=== PATIENT | female | born 1955 | race Caucasian/White ===

== ENCOUNTER 2018-12-18 13:59 | Inpatient (IN) | payer MEDICARE, OTHER ==
[~2018-12-18] VITALS: Ht 157.5 cm; Wt 85.4 kg
[2018-12-18 16:55] VITALS: BP 113/80
[2018-12-18] MEDS ORDERED: PLEASE ENTER ALLERGIES MC SCH (18:00)
[2018-12-18 18:05] LABS: MEAN CORPUSCULAR HEMOGLOBIN 31.8 pg (27.0-34.8); MEAN CORPUSCULAR HGB CONC 34.1 g/dL (32.4-35.8); MEAN CORPUSCULAR VOLUME 93.2 fL (80-100); MEAN PLATELET VOLUME 7.6 fL (7.4-10.4); PLATELET COUNT 181 x10^3/uL (130-400); RED BLOOD COUNT 4.34 x10^6/uL (3.82-5.3); RED CELL DISTRIBUTION WIDTH 14.5 % (9.6-15.2)
[2018-12-18 18:09] LABS: ANION GAP 4 mmol/L (5-15); CALCIUM 8.6 mg/dL (8.5-10.1); CHLORIDE 105 mmol/L (98-107)
[2018-12-18 18:14] LABS: ALANINE AMINOTRANSFERASE 27 U/L (12-78); ALBUMIN 3.2 g/dL (3.4-5.0); BILIRUBIN, DIRECT 0.5 mg/dL (0.1-0.2); BILIRUBIN,TOTAL 1.2 mg/dL (0.2-1.0); CREATININE 0.82 mg/dL (0.55-1.02); TOTAL PROTEIN 6.6 g/dL (6.4-8.2)
[2018-12-18 18:15] LABS: ALKALINE PHOSPHATASE 59 U/L (45-117); BILIRUBIN,INDIRECT 0.7 mg/dL (0.0-2.0)
[2018-12-18 18:49] LABS: BASOPHILS # (AUTO) 0.03 x10^3/uL (0-0.1); BASOPHILS % (AUTO) 0 % (0-1); EOSINOPHILS # (AUTO) 0.02 x10^3/uL (0-0.4); EOSINOPHILS % (AUTO) 0 % (1-7); LYMPHOCYTES # (AUTO) 0.53 x10^3/uL (1-3.4); LYMPHOCYTES % (AUTO) 3 % (22-44); MD SCAN; MONOCYTES # (AUTO) 0.57 x10^3/uL (0.2-0.8); MONOCYTES % (AUTO) 3 % (2-9); NEUTROPHILS # (AUTO) 16.36 x10^3/uL (1.8-6.8); NEUTROPHILS % (AUTO) 93 % (42-75)
[2018-12-18] MEDS: morphine SULFATE 10 MG/ML, 1ML IVPush PRN ×2 (19:41→20:03)
[2018-12-18 20:01] VITALS: BP 111/77
[2018-12-18] MEDS: SODIUM CHLORIDE 0.9% 1,000 ML IV SCH (20:03)
[2018-12-18] MEDS: MEROPENEM 1 GM in SODIUM CHLORIDE 0.9% 100 ML IV SCH (20:40)
[2018-12-18] MEDS ORDERED: RANI150T23 PO (20:43)
[2018-12-18] MEDS ORDERED: CLON0.5T11 PO (20:43)
[2018-12-18] MEDS ORDERED: ALPR-475 PO (20:43)
[2018-12-18] MEDS ORDERED: LEVO125T PO (20:43)
[2018-12-18] MEDS ORDERED: SERT50TA PO (20:43)
[2018-12-18] MEDS ORDERED: ZOLP10TA PO (20:43)
[2018-12-18] MEDS ORDERED: PANT40GR PO (20:43)
[2018-12-18] MEDS ORDERED: MIRT15TA PO (20:43)
[2018-12-18] MEDS ORDERED: ESTR1TAB7 PO (20:43)
[2018-12-18] MEDS: HYDROmorphone 2 MG/ML, 1ML IVPush PRN (21:11)
[2018-12-18 21:46] LABS: MICROSCOPIC INDICATED
[2018-12-18] MEDS ORDERED: MAGNESIUM CITRATE 300ML ORAL SOL PO ONE (22:00)
[2018-12-19] MEDS: HYDROmorphone 2 MG/ML, 1ML IVPush PRN ×6 (00:30→20:53)
[2018-12-19 00:34] VITALS: BP 111/87
[2018-12-19 02:55] VITALS: BP 127/93
[2018-12-19] MEDS: SODIUM CHLORIDE 0.9% 1,000 ML IV SCH ×3 (04:08→20:41)
[2018-12-19] MEDS: MEROPENEM 1 GM in SODIUM CHLORIDE 0.9% 100 ML IV SCH ×3 (04:14→20:41)
[2018-12-19 05:34] LABS: BASOPHILS # (AUTO) 0.03 x10^3/uL (0-0.1); BASOPHILS % (AUTO) 0 % (0-1); EOSINOPHILS # (AUTO) 0.06 x10^3/uL (0-0.4); EOSINOPHILS % (AUTO) 0 % (1-7); LYMPHOCYTES # (AUTO) 0.49 x10^3/uL (1-3.4); LYMPHOCYTES % (AUTO) 3 % (22-44); MD NO; MEAN CORPUSCULAR HEMOGLOBIN 32.2 pg (27.0-34.8); MEAN CORPUSCULAR HGB CONC 34.3 g/dL (32.4-35.8); MEAN CORPUSCULAR VOLUME 93.9 fL (80-100); MONOCYTES # (AUTO) 0.86 x10^3/uL (0.2-0.8); MONOCYTES % (AUTO) 6 % (2-9); NEUTROPHILS # (AUTO) 13.57 x10^3/uL (1.8-6.8); NEUTROPHILS % (AUTO) 91 % (42-75); PLATELET COUNT 169 x10^3/uL (130-400); RED BLOOD COUNT 3.94 x10^6/uL (3.82-5.3); RED CELL DISTRIBUTION WIDTH 14.5 % (9.6-15.2)
[2018-12-19 05:41] LABS: ALANINE AMINOTRANSFERASE 23 U/L (12-78); ALBUMIN 2.8 g/dL (3.4-5.0); ANION GAP 4 mmol/L (5-15); CALCIUM 8.4 mg/dL (8.5-10.1); CHLORIDE 109 mmol/L (98-107); CREATININE 0.79 mg/dL (0.55-1.02)
[2018-12-19 05:43] LABS: ALKALINE PHOSPHATASE 59 U/L (45-117); TOTAL PROTEIN 6.2 g/dL (6.4-8.2)
[2018-12-19] MEDS: PANTOPRAZOLE 40 MG IV IVPush SCH (07:44)
[2018-12-19 07:51] VITALS: BP 103/77
[2018-12-19] MEDS ORDERED: MAGNESIUM CITRATE 300ML ORAL SOL PO ONE (08:00)
[2018-12-19] MEDS: ACETAMINOPHEN 325 MG TABLET PO PRN (12:06)
[2018-12-19] MEDS: SERTRALINE 50MG TABLET PO SCH (12:08)
[2018-12-19 13:17] VITALS: BP 95/64
[2018-12-19] MEDS ORDERED: OMNIPAQUE 350 MG/ML, 100ML BOTTLE ONE (16:40)
[2018-12-19] MEDS: ONDANSETRON 2MG/ML, 2ML IVPush PRN (17:05)
[2018-12-19 19:01] VITALS: BP 90/66
[2018-12-19] MEDS: FAMOTIDINE 20 MG TABLET PO SCH (20:38)
[2018-12-20 04:14] VITALS: BP 107/72
[2018-12-20] MEDS: ONDANSETRON 2MG/ML, 2ML IVPush PRN (04:30)
[2018-12-20] MEDS: HYDROmorphone 2 MG/ML, 1ML IVPush PRN ×5 (04:32→18:48)
[2018-12-20] MEDS: MEROPENEM 1 GM in SODIUM CHLORIDE 0.9% 100 ML IV SCH ×3 (04:34→20:10)
[2018-12-20] MEDS: SODIUM CHLORIDE 0.9% 1,000 ML IV SCH ×3 (04:34→20:10)
[2018-12-20] MEDS ORDERED: SERTRALINE 50MG TABLET PO SCH (06:00)
[2018-12-20] MEDS: PANTOPRAZOLE GRAN. PKT 40 MG PO SCH (07:21)
[2018-12-20] MEDS: SERTRALINE 50MG TABLET PO SCH ×2 (07:21→08:44)
[2018-12-20] MEDS: LEVOTHYROXINE 125 MCG TABLET PO SCH (07:21)
[2018-12-20 08:07] VITALS: BP 105/73
[2018-12-20] MEDS: PANTOPRAZOLE 40 MG IV IVPush SCH (08:37)
[2018-12-20] MEDS: ACETAMINOPHEN 325 MG TABLET PO PRN (08:44)
[2018-12-20] MEDS ORDERED: SODIUM CHLORIDE 0.9% IV ONE (09:30)
[2018-12-20] MEDS ORDERED: INDOCYANINE GREEN IV ONE (09:30)
[2018-12-20] MEDS ORDERED: ACETAMINOPHEN 500 MG TABLET ONE (14:57)
[2018-12-20] MEDS ORDERED: GABAPENTIN 300 MG CAPSULE ONE (14:57)
[2018-12-20] MEDS ORDERED: GABAPENTIN 300 MG CAPSULE PO ONE (15:00)
[2018-12-20] MEDS ORDERED: ACETAMINOPHEN 500 MG TABLET PO ONE (15:00)
[2018-12-20] MEDS ORDERED: FENTANYL PF 250 MCG/5ML ONE (15:05)
[2018-12-20] MEDS ORDERED: PROCHLORPERAZINE 5 MG/ML, 2ML IV PRN (15:30)
[2018-12-20] MEDS ORDERED: METOPROLOL 1 MG/ML, 5ML IV PRN (15:30)
[2018-12-20] MEDS ORDERED: MEPERIDINE/PF 25MG/0.5ML IVPush PRN ×2 (15:30→18:00)
[2018-12-20] MEDS ORDERED: DIPHENHYDRAMINE 50 MG/ML, 1ML IVPush PRN (15:30)
[2018-12-20] MEDS ORDERED: LABETALOL 5MG/ML, 20ML IV PRN ×2 (15:30→18:00)
[2018-12-20] MEDS ORDERED: HALOPERIDOL 5 MG/ML IV PRN (15:30)
[2018-12-20] MEDS ORDERED: PROMETHAZINE 25 MG/ML, 1ML IV PRN (15:30)
[2018-12-20] MEDS ORDERED: OXYcodone 5 MG/5 ML ORAL.SOL UDC PO PRN (15:30)
[2018-12-20] MEDS ORDERED: hydrALAzine 20 MG/ML, 1ML IV PRN (15:30)
[2018-12-20] MEDS: PANTOPRAZOLE MC SCH ×2 (15:30→22:20)
[2018-12-20] MEDS ORDERED: FENTANYL PF 100 MCG/2ML IV PRN ×2 (15:30→18:00)
[2018-12-20] MEDS: FAMOTIDINE MC SCH ×2 (15:30→22:20)
[2018-12-20] MEDS ORDERED: BUPIVACAINE/PF-EPI 0.5% 1:200K ONE (16:02)
[2018-12-20] MEDS ORDERED: MIDAZOLAM 1 MG/ML, 2ML ONE (16:03)
[2018-12-20] MEDS ORDERED: NEOSTIGMINE 1 MG/ML, 10ML ONE (16:18)
[2018-12-20] MEDS ORDERED: ONDANSETRON 2MG/ML, 2ML ONE (16:18)
[2018-12-20] MEDS ORDERED: SUCCINYLCHOLINE 20 MG/ML, 10ML ONE (16:18)
[2018-12-20] MEDS ORDERED: PHENYLEPHRINE 10 MG/ML ONE (16:18)
[2018-12-20] MEDS ORDERED: ROCURONIUM 10 MG/ML,10ML ONE (16:18)
[2018-12-20] MEDS ORDERED: DEXAMETHASONE 4 MG/ML, 5ML ONE (16:18)
[2018-12-20] MEDS ORDERED: GLYCOPYRROLATE 0.2MG/1ML, 5ML ONE (16:18)
[2018-12-20] MEDS ORDERED: PROPOFOL 10 MG/ML, 20ML ONE (16:18)
[2018-12-20] MEDS ORDERED: THROMBIN 20,000 UNIT VIAL TP ONE (17:04)
[2018-12-20] MEDS ORDERED: LORazepam 2 MG/ML, 1ML IVPush PRN (18:00)
[2018-12-20] MEDS ORDERED: HYDROmorphone 2 MG/ML, 1ML IVPush PRN (18:00)
[2018-12-20] MEDS ORDERED: METOCLOPRAMIDE 5 MG/ML, 2ML IV PRN (18:00)
[2018-12-20] MEDS ORDERED: MORPHINE SULFATE 4 MG/ML, 1ML IVPush PRN (18:00)
[2018-12-20] MEDS ORDERED: HYDROmorphone 2 MG/ML, 1ML ONE (18:07)
[2018-12-20] MEDS ORDERED: FENTANYL PF 100 MCG/2ML ONE (18:07)
[2018-12-20] MEDS: FAMOTIDINE 20 MG TABLET PO SCH (20:09)
[2018-12-20] MEDS: OXYcodone 5 MG/5 ML ORAL.SOL UDC PO PRN (20:23)
[2018-12-21 00:04] VITALS: BP 122/78
[2018-12-21] MEDS: OXYcodone 5 MG/5 ML ORAL.SOL UDC PO PRN ×3 (00:31→19:55)
[2018-12-21 03:42] VITALS: BP 125/79
[2018-12-21] MEDS: MEROPENEM 1 GM in SODIUM CHLORIDE 0.9% 100 ML IV SCH (03:55)
[2018-12-21] MEDS: SODIUM CHLORIDE 0.9% 1,000 ML IV SCH ×2 (03:55→13:24)
[2018-12-21 05:27] LABS: ALANINE AMINOTRANSFERASE 51 U/L (12-78); ALBUMIN 2.4 g/dL (3.4-5.0); ANION GAP 8 mmol/L (5-15); CALCIUM 7.9 mg/dL (8.5-10.1); CHLORIDE 110 mmol/L (98-107); CREATININE 0.56 mg/dL (0.55-1.02)
[2018-12-21 05:29] LABS: ALKALINE PHOSPHATASE 69 U/L (45-117); BILIRUBIN,TOTAL 0.7 mg/dL (0.2-1.0); TOTAL PROTEIN 5.7 g/dL (6.4-8.2)
[2018-12-21 05:30] LABS: BASOPHILS # (AUTO) 0.01 x10^3/uL (0-0.1); BASOPHILS % (AUTO) 0 % (0-1); EOSINOPHILS # (AUTO) 0.03 x10^3/uL (0-0.4); EOSINOPHILS % (AUTO) 0 % (1-7); LYMPHOCYTES # (AUTO) 0.63 x10^3/uL (1-3.4); LYMPHOCYTES % (AUTO) 6 % (22-44); MD NO; MEAN CORPUSCULAR HEMOGLOBIN 31.8 pg (27.0-34.8); MEAN CORPUSCULAR HGB CONC 33.7 g/dL (32.4-35.8); MEAN CORPUSCULAR VOLUME 94.5 fL (80-100); MEAN PLATELET VOLUME 7.6 fL (7.4-10.4); MONOCYTES # (AUTO) 0.83 x10^3/uL (0.2-0.8); MONOCYTES % (AUTO) 7 % (2-9); NEUTROPHILS # (AUTO) 9.81 x10^3/uL (1.8-6.8); NEUTROPHILS % (AUTO) 87 % (42-75); PLATELET COUNT 203 x10^3/uL (130-400); RED BLOOD COUNT 3.46 x10^6/uL (3.82-5.3); RED CELL DISTRIBUTION WIDTH 14.7 % (9.6-15.2)
[2018-12-21] MEDS: ONDANSETRON 2MG/ML, 2ML IVPush PRN (06:08)
[2018-12-21] MEDS: PANTOPRAZOLE GRAN. PKT 40 MG PO SCH (06:09)
[2018-12-21] MEDS: HYDROmorphone 2 MG/ML, 1ML IVPush PRN ×2 (06:09→09:15)
[2018-12-21] MEDS: LEVOTHYROXINE 125 MCG TABLET PO SCH (06:09)
[2018-12-21] MEDS: FAMOTIDINE MC SCH ×3 (06:09→22:35)
[2018-12-21] MEDS: PANTOPRAZOLE MC SCH ×3 (06:09→22:35)
[2018-12-21 07:34] VITALS: BP 145/98
[2018-12-21] MEDS: SERTRALINE 50MG TABLET PO SCH (08:20)
[2018-12-21] MEDS: ACETAMINOPHEN 325 MG TABLET PO PRN (08:21)
[2018-12-21] MEDS: PANTOPRAZOLE 40 MG IV IVPush SCH (09:44)
[2018-12-21] MEDS: KETOROLAC 30 MG/1 ML IVPush SCH ×3 (10:34→22:33)
[2018-12-21] MEDS ORDERED: HYDROmorphone 2 MG/ML, 1ML IVPush PRN (11:30)
[2018-12-21 13:10] VITALS: BP 121/85
[2018-12-21] MEDS: FAMOTIDINE 20 MG TABLET PO SCH (19:55)
[2018-12-21 19:57] VITALS: BP 133/86
[2018-12-22 02:56] VITALS: BP 141/91
[2018-12-22] MEDS: OXYcodone 5 MG/5 ML ORAL.SOL UDC PO PRN ×4 (03:03→20:44)
[2018-12-22] MEDS: KETOROLAC 30 MG/1 ML IVPush SCH ×4 (04:53→22:38)
[2018-12-22] MEDS: PANTOPRAZOLE GRAN. PKT 40 MG PO SCH (04:54)
[2018-12-22] MEDS: LEVOTHYROXINE 125 MCG TABLET PO SCH (05:01)
[2018-12-22] MEDS: FAMOTIDINE MC SCH (07:30)
[2018-12-22] MEDS: PANTOPRAZOLE MC SCH (07:30)
[2018-12-22] MEDS: PANTOPRAZOLE 40 MG IV IVPush SCH (08:25)
[2018-12-22 08:29] VITALS: BP 110/65
[2018-12-22] MEDS: MEROPENEM 1 GM in SODIUM CHLORIDE 0.9% 100 ML IV SCH ×2 (09:37→17:51)
[2018-12-22] MEDS: SODIUM CHLORIDE 0.9% 1,000 ML IV SCH (12:25)
[2018-12-22] MEDS: SERTRALINE 50MG TABLET PO SCH (13:36)
[2018-12-22 13:44] VITALS: BP 122/81
[2018-12-22] MEDS ORDERED: POTASSIUM CHLORIDE 20 MEQ TAB.ER.PRT PO ONE (14:30)
[2018-12-22 19:31] VITALS: BP 123/81
[2018-12-22] MEDS: DOCUSATE 100 MG CAPSULE PO SCH (20:44)
[2018-12-23 01:19] VITALS: BP 114/72
[2018-12-23] MEDS: MEROPENEM 1 GM in SODIUM CHLORIDE 0.9% 100 ML IV SCH ×3 (02:20→18:21)
[2018-12-23] MEDS: KETOROLAC 30 MG/1 ML IVPush SCH ×4 (04:38→23:40)
[2018-12-23 05:33] LABS: BASOPHILS # (AUTO) 0.02 x10^3/uL (0-0.1); BASOPHILS % (AUTO) 0 % (0-1); EOSINOPHILS # (AUTO) 0.43 x10^3/uL (0-0.4); EOSINOPHILS % (AUTO) 7 % (1-7); LYMPHOCYTES # (AUTO) 1.32 x10^3/uL (1-3.4); LYMPHOCYTES % (AUTO) 22 % (22-44); MD NO; MEAN CORPUSCULAR HEMOGLOBIN 31.9 pg (27.0-34.8); MEAN CORPUSCULAR HGB CONC 34.2 g/dL (32.4-35.8); MEAN CORPUSCULAR VOLUME 93.4 fL (80-100); MEAN PLATELET VOLUME 6.8 fL (7.4-10.4); MONOCYTES # (AUTO) 0.79 x10^3/uL (0.2-0.8); MONOCYTES % (AUTO) 13 % (2-9); NEUTROPHILS # (AUTO) 3.44 x10^3/uL (1.8-6.8); NEUTROPHILS % (AUTO) 57 % (42-75); PLATELET COUNT 244 x10^3/uL (130-400); RED BLOOD COUNT 3.46 x10^6/uL (3.82-5.3); RED CELL DISTRIBUTION WIDTH 14.2 % (9.6-15.2)
[2018-12-23 05:34] LABS: ALBUMIN 2.2 g/dL (3.4-5.0); ANION GAP 5 mmol/L (5-15); CHLORIDE 112 mmol/L (98-107)
[2018-12-23 05:40] LABS: ALANINE AMINOTRANSFERASE 32 U/L (12-78); ALKALINE PHOSPHATASE 51 U/L (45-117); BILIRUBIN,TOTAL 0.7 mg/dL (0.2-1.0); CREATININE 0.68 mg/dL (0.55-1.02); TOTAL PROTEIN 5.3 g/dL (6.4-8.2)
[2018-12-23] MEDS: LEVOTHYROXINE 125 MCG TABLET PO SCH (05:43)
[2018-12-23] MEDS: PANTOPRAZOLE GRAN. PKT 40 MG PO SCH (05:43)
[2018-12-23] MEDS ORDERED: POTASSIUM CHLORIDE 10% 40 MEQ/30 ML UDC PO ONE ×2 (07:30→11:30)
[2018-12-23 07:34] VITALS: BP 119/80
[2018-12-23] MEDS: OXYcodone 5 MG/5 ML ORAL.SOL UDC PO PRN ×2 (08:05→20:13)
[2018-12-23] MEDS: DOCUSATE 100 MG CAPSULE PO SCH ×2 (08:06→21:19)
[2018-12-23] MEDS: SERTRALINE 50MG TABLET PO SCH (08:07)
[2018-12-23] MEDS: SODIUM CHLORIDE 0.9% 1,000 ML IV SCH (10:41)
[2018-12-23] MEDS ORDERED: PNEUMOC 13-VALENT VACC, 0.5 ML IM-VACC ONE (12:30)
[2018-12-23 14:02] VITALS: BP 123/83
[2018-12-23 20:29] VITALS: BP 137/89
[2018-12-23] MEDS: MIRTAZAPINE 15 MG TABLET PO PRN (21:19)
[2018-12-23] MEDS: ZOLPIDEM 10MG TABLET PO PRN (21:20)
[2018-12-24] MEDS: OXYcodone 5 MG/5 ML ORAL.SOL UDC PO PRN ×3 (00:50→17:52)
[2018-12-24] MEDS: MEROPENEM 1 GM in SODIUM CHLORIDE 0.9% 100 ML IV SCH ×3 (03:38→17:44)
[2018-12-24 06:00] LABS: BASOPHILS # (AUTO) 0.05 x10^3/uL (0-0.1); BASOPHILS % (AUTO) 1 % (0-1); EOSINOPHILS # (AUTO) 0.46 x10^3/uL (0-0.4); EOSINOPHILS % (AUTO) 6 % (1-7); LYMPHOCYTES % (AUTO) 23 % (22-44); MD NO; MEAN CORPUSCULAR HEMOGLOBIN 31.8 pg (27.0-34.8); MEAN CORPUSCULAR HGB CONC 33.8 g/dL (32.4-35.8); MEAN CORPUSCULAR VOLUME 94.1 fL (80-100); MEAN PLATELET VOLUME 7.2 fL (7.4-10.4); MONOCYTES # (AUTO) 0.84 x10^3/uL (0.2-0.8); MONOCYTES % (AUTO) 12 % (2-9); NEUTROPHILS # (AUTO) 4.22 x10^3/uL (1.8-6.8); NEUTROPHILS % (AUTO) 58 % (42-75); PLATELET COUNT 249 x10^3/uL (130-400); RED BLOOD COUNT 3.41 x10^6/uL (3.82-5.3); RED CELL DISTRIBUTION WIDTH 14.3 % (9.6-15.2)
[2018-12-24 06:02] LABS: CHLORIDE 112 mmol/L (98-107)
[2018-12-24 06:09] LABS: ALANINE AMINOTRANSFERASE 29 U/L (12-78); ALBUMIN 2.3 g/dL (3.4-5.0); ALKALINE PHOSPHATASE 53 U/L (45-117); ANION GAP 5 mmol/L (5-15); BILIRUBIN,TOTAL 0.5 mg/dL (0.2-1.0); CALCIUM 8.1 mg/dL (8.5-10.1); CREATININE 0.64 mg/dL (0.55-1.02); TOTAL PROTEIN 5.2 g/dL (6.4-8.2)
[2018-12-24] MEDS: PANTOPRAZOLE GRAN. PKT 40 MG PO SCH (07:22)
[2018-12-24] MEDS: LEVOTHYROXINE 125 MCG TABLET PO SCH (07:22)
[2018-12-24] MEDS: KETOROLAC 30 MG/1 ML IVPush SCH ×3 (07:23→17:44)
[2018-12-24 07:30] VITALS: BP 138/93
[2018-12-24] MEDS: DOCUSATE 100 MG CAPSULE PO SCH ×2 (07:32→20:39)
[2018-12-24] MEDS: SERTRALINE 50MG TABLET PO SCH (07:34)
[2018-12-24] MEDS: SODIUM CHLORIDE 0.9% 1,000 ML IV SCH (07:43)
[2018-12-24] MEDS: ACETAMINOPHEN 325 MG TABLET PO PRN (10:42)
[2018-12-24 13:15] VITALS: BP 140/78
[2018-12-24] MEDS ORDERED: BISACODYL 10 MG SUPP PR PRN (15:00)
[2018-12-24 19:06] VITALS: BP 119/78
[2018-12-24] MEDS: MIRTAZAPINE 15 MG TABLET PO PRN (20:52)
[2018-12-24] MEDS: ZOLPIDEM 10MG TABLET PO PRN (20:52)
[2018-12-25] MEDS: KETOROLAC 30 MG/1 ML IVPush SCH ×4 (00:08→19:21)
[2018-12-25 02:08] VITALS: BP 139/90
[2018-12-25] MEDS: MEROPENEM 1 GM in SODIUM CHLORIDE 0.9% 100 ML IV SCH ×2 (02:27→09:33)
[2018-12-25] MEDS: SODIUM CHLORIDE 0.9% 1,000 ML IV SCH ×2 (02:27→23:25)
[2018-12-25] MEDS: SERTRALINE 50MG TABLET PO SCH (05:23)
[2018-12-25] MEDS: LEVOTHYROXINE 125 MCG TABLET PO SCH (05:23)
[2018-12-25] MEDS: PANTOPRAZOLE GRAN. PKT 40 MG PO SCH (05:23)
[2018-12-25 05:31] LABS: BASOPHILS # (AUTO) 0.06 x10^3/uL (0-0.1); BASOPHILS % (AUTO) 1 % (0-1); EOSINOPHILS # (AUTO) 0.47 x10^3/uL (0-0.4); EOSINOPHILS % (AUTO) 6 % (1-7); LYMPHOCYTES # (AUTO) 1.14 x10^3/uL (1-3.4); LYMPHOCYTES % (AUTO) 14 % (22-44); MD NO; MEAN CORPUSCULAR HEMOGLOBIN 31.1 pg (27.0-34.8); MEAN CORPUSCULAR HGB CONC 33.4 g/dL (32.4-35.8); MEAN CORPUSCULAR VOLUME 93.2 fL (80-100); MEAN PLATELET VOLUME 6.7 fL (7.4-10.4); MONOCYTES # (AUTO) 0.86 x10^3/uL (0.2-0.8); MONOCYTES % (AUTO) 10 % (2-9); NEUTROPHILS # (AUTO) 5.73 x10^3/uL (1.8-6.8); NEUTROPHILS % (AUTO) 69 % (42-75); PLATELET COUNT 294 x10^3/uL (130-400); RED BLOOD COUNT 3.65 x10^6/uL (3.82-5.3); RED CELL DISTRIBUTION WIDTH 14.2 % (9.6-15.2)
[2018-12-25 05:40] LABS: ALBUMIN 2.5 g/dL (3.4-5.0); ANION GAP 4 mmol/L (5-15); CALCIUM 8.2 mg/dL (8.5-10.1); CHLORIDE 111 mmol/L (98-107)
[2018-12-25 05:44] LABS: ALANINE AMINOTRANSFERASE 30 U/L (12-78); ALKALINE PHOSPHATASE 55 U/L (45-117); BILIRUBIN,TOTAL 0.6 mg/dL (0.2-1.0); TOTAL PROTEIN 5.8 g/dL (6.4-8.2)
[2018-12-25] MEDS: OXYcodone 5 MG/5 ML ORAL.SOL UDC PO PRN (06:16)
[2018-12-25 07:00] VITALS: BP 136/92
[2018-12-25] MEDS: DOCUSATE 100 MG CAPSULE PO SCH ×2 (08:18→19:21)
[2018-12-25 12:43] VITALS: BP 135/79
[2018-12-25] MEDS ORDERED: MEROPENEM 1 GM in SODIUM CHLORIDE 0.9% 100 ML IV SCH (16:30)
[2018-12-25 18:52] VITALS: BP 138/82
[2018-12-25] MEDS: MIRTAZAPINE 15 MG TABLET PO PRN (21:42)
[2018-12-25] MEDS: ZOLPIDEM 10MG TABLET PO PRN (21:42)
[2018-12-26 01:26] VITALS: BP 143/88
[2018-12-26] MEDS: KETOROLAC 30 MG/1 ML IVPush SCH ×2 (01:28→06:27)
[2018-12-26] MEDS: SERTRALINE 50MG TABLET PO SCH (05:00)
[2018-12-26] MEDS: LEVOTHYROXINE 125 MCG TABLET PO SCH (05:00)
[2018-12-26] MEDS: PANTOPRAZOLE GRAN. PKT 40 MG PO SCH (05:01)
[2018-12-26 05:44] LABS: BASOPHILS # (AUTO) 0.04 x10^3/uL (0-0.1); BASOPHILS % (AUTO) 1 % (0-1); EOSINOPHILS # (AUTO) 0.36 x10^3/uL (0-0.4); EOSINOPHILS % (AUTO) 6 % (1-7); LYMPHOCYTES # (AUTO) 1.07 x10^3/uL (1-3.4); LYMPHOCYTES % (AUTO) 16 % (22-44); MD NO; MEAN CORPUSCULAR HEMOGLOBIN 31.6 pg (27.0-34.8); MEAN CORPUSCULAR HGB CONC 33.8 g/dL (32.4-35.8); MEAN CORPUSCULAR VOLUME 93.7 fL (80-100); MEAN PLATELET VOLUME 6.9 fL (7.4-10.4); MONOCYTES # (AUTO) 0.84 x10^3/uL (0.2-0.8); MONOCYTES % (AUTO) 13 % (2-9); NEUTROPHILS # (AUTO) 4.26 x10^3/uL (1.8-6.8); NEUTROPHILS % (AUTO) 65 % (42-75); PLATELET COUNT 292 x10^3/uL (130-400); RED BLOOD COUNT 3.55 x10^6/uL (3.82-5.3); RED CELL DISTRIBUTION WIDTH 14.1 % (9.6-15.2)
[2018-12-26 05:47] LABS: CHLORIDE 110 mmol/L (98-107)
[2018-12-26 05:53] LABS: ALANINE AMINOTRANSFERASE 26 U/L (12-78); ALBUMIN 2.7 g/dL (3.4-5.0); ALKALINE PHOSPHATASE 55 U/L (45-117); ANION GAP 5 mmol/L (5-15); BILIRUBIN,TOTAL 0.7 mg/dL (0.2-1.0); CALCIUM 8.5 mg/dL (8.5-10.1); CREATININE 0.68 mg/dL (0.55-1.02); TOTAL PROTEIN 5.8 g/dL (6.4-8.2)
[2018-12-26] MEDS: OXYcodone 5 MG/5 ML ORAL.SOL UDC PO PRN (06:27)
[2018-12-26] MEDS: ERTAPENEM 1 GM in SODIUM CHLORIDE 0.9% 50 ML IV SCH (06:27)
[2018-12-26 07:44] VITALS: BP 129/88
[2018-12-26] MEDS: ONDANSETRON 2MG/ML, 2ML IVPush PRN (07:44)
[2018-12-26] MEDS: DOCUSATE 100 MG CAPSULE PO SCH ×2 (07:44→20:19)
[2018-12-26] MEDS ORDERED: IBUPROFEN 600 MG TABLET ONE (12:29)
[2018-12-26] MEDS: IBUPROFEN 200 MG TABLET PO PRN ×2 (12:35→20:18)
[2018-12-26 15:37] VITALS: BP 113/75
[2018-12-26 20:17] VITALS: BP 123/78
[2018-12-26] MEDS ORDERED: SODIUM CHLORIDE FLUSH 10ML SYR IVF SCH (21:00)
[2018-12-26] MEDS: MIRTAZAPINE 15 MG TABLET PO PRN (21:58)
[2018-12-26] MEDS: ZOLPIDEM 10MG TABLET PO PRN (21:58)
[2018-12-27] MEDS ORDERED: ONDA4TAB7 PO (02:39)
[2018-12-27] MEDS ORDERED: HYDR-3237 PO (02:39)
[2018-12-27] MEDS ORDERED: IBUP-1222 PO (02:41)
[2018-12-27 04:36] VITALS: BP 121/84
[2018-12-27] MEDS: PANTOPRAZOLE GRAN. PKT 40 MG PO SCH (04:56)
[2018-12-27] MEDS: SERTRALINE 50MG TABLET PO SCH (04:56)
[2018-12-27] MEDS: LEVOTHYROXINE 125 MCG TABLET PO SCH (04:56)
[2018-12-27] MEDS: IBUPROFEN 200 MG TABLET PO PRN (04:56)
[2018-12-27] MEDS: ERTAPENEM 1 GM in SODIUM CHLORIDE 0.9% 50 ML IV SCH (05:52)
[2018-12-27 08:12] VITALS: BP 129/85
== END 2018-12-27 09:10 | disposition home or self-care (01) | DRG 414 ==
LOC: 4NOR 16:30 → DCLOUNGE 12-27 08:50
PROVIDERS: ADMIT Internal Medicine; ATTEND Internal Medicine
PROC: 5A09357 Assistance with Respiratory Ventilation, Less than 24 Consecutive Hours, Continuous Positive Airway Pressure (ICD-10-PCS; 2018-12-19)
PROC: 0FJ44ZZ Inspection of Gallbladder, Percutaneous Endoscopic Approach (ICD-10-PCS; 2018-12-20)
PROC: 0DNW0ZZ Release Peritoneum, Open Approach (ICD-10-PCS; 2018-12-20)
PROC: 8E0W0CZ Robotic Assisted Procedure of Trunk Region, Open Approach (ICD-10-PCS; 2018-12-20)
PROC: 5A09357 Assistance with Respiratory Ventilation, Less than 24 Consecutive Hours, Continuous Positive Airway Pressure (ICD-10-PCS; 2018-12-20)
PROC: 0FT40ZZ Resection of Gallbladder, Open Approach (ICD-10-PCS; principal; 2018-12-20 15:30)
PROC: 5A09357 Assistance with Respiratory Ventilation, Less than 24 Consecutive Hours, Continuous Positive Airway Pressure (ICD-10-PCS; 2018-12-22)
PROC: 5A09357 Assistance with Respiratory Ventilation, Less than 24 Consecutive Hours, Continuous Positive Airway Pressure (ICD-10-PCS; 2018-12-23)
PROC: 02HV33Z Insertion of Infusion Device into Superior Vena Cava, Percutaneous Approach (ICD-10-PCS; 2018-12-25)
PROC: B5181ZA Fluoroscopy of Superior Vena Cava using Low Osmolar Contrast, Guidance (ICD-10-PCS; 2018-12-25)
PROC: B548ZZA Ultrasonography of Superior Vena Cava, Guidance (ICD-10-PCS; 2018-12-25)
PROC: 5A09357 Assistance with Respiratory Ventilation, Less than 24 Consecutive Hours, Continuous Positive Airway Pressure (ICD-10-PCS; 2018-12-25)
PROC: 5A09357 Assistance with Respiratory Ventilation, Less than 24 Consecutive Hours, Continuous Positive Airway Pressure (ICD-10-PCS; 2018-12-26)
DX: K80.64 Calculus of gallbladder and bile duct with chronic cholecystitis without obstruction (principal); J96.01 Acute respiratory failure with hypoxia; K65.1 Peritoneal abscess; E03.9 Hypothyroidism, unspecified; F32.9 Major depressive disorder, single episode, unspecified; G47.33 Obstructive sleep apnea (adult) (pediatric); H66.90 Otitis media, unspecified, unspecified ear; H91.90 Unspecified hearing loss, unspecified ear; K21.9 Gastro-esophageal reflux disease without esophagitis; K22.70 Barrett's esophagus without dysplasia; K29.80 Duodenitis without bleeding; K59.00 Constipation, unspecified; K66.0 Peritoneal adhesions (postprocedural) (postinfection); N73.9 Female pelvic inflammatory disease, unspecified; T78.3XXA Angioneurotic edema, initial encounter; Z87.01 Personal history of pneumonia (recurrent); Z90.49 Acquired absence of other specified parts of digestive tract; Z96.659 Presence of unspecified artificial knee joint; K52.9 Noninfective gastroenteritis and colitis, unspecified
CPT/HCPCS: 36415; 74018; 84145; J3490; 36573; 71275; 74181; 80048; 80053; 80076; 81001; 82784; 82787; 83605; 83690; 83735; 84100; 85025; 86803; 87040; 87070; 87075; 87086; 87205; 88300; 88304; G0378; J1100; J1170; J1335; J1885; J2185; J2250; J2405; J2704; J2710; J3010; Q9967; C1751; C9113; G0009; J0330; J2270; J2370; J7030